=== PATIENT | male | born 1975 | race Caucasian/White ===

== ENCOUNTER 2017-08-18 14:22 | Emergency (ER) | payer OTHER ==
[~2017-08-18] VITALS: Ht 185.4 cm; Wt 95.3 kg
[2017-08-18 14:22] VITALS: BP_SYST 127
[2017-08-18] MEDS ORDERED: IBUPROFEN 800 MG TABLET PO ONE (14:45)
[2017-08-18 16:25] VITALS: BP_SYST 122
== END 2017-08-18 16:25 | disposition home or self-care (01) ==
LOC: SED 14:22
DX: S92.355A Nondisplaced fracture of fifth metatarsal bone, left foot, initial encounter for closed fracture (principal); R03.0 Elevated blood-pressure reading, without diagnosis of hypertension; Z90.89 Acquired absence of other organs; W18.43XA Slipping, tripping and stumbling without falling due to stepping from one level to another, initial encounter; Y93.01 Activity, walking, marching and hiking; Y92.89 Other specified places as the place of occurrence of the external cause; Y99.8 Other external cause status
CPT/HCPCS: 99284

== ENCOUNTER 2022-03-04 17:52 | Emergency (ER) | payer OTHER ==
[~2022-03-04] VITALS: Ht 185.4 cm; Wt 99.8 kg
[2022-03-04 18:00] VITALS: BP_SYST 110
--- NOTE | 2022-03-04 19:57 | NUR ---
[facility] to ER [facility]. Side rails up. Report given to Ivory DAVIS.
--- NOTE | 2022-03-04 20:00 | NUR ---
PATIENT BROUGHT IN COMPLAING OF LACERATION TO HIS LEFT INDEX FINGER AFTER TRYING TO SLICE THE ENDS OF A FLOWER BOUQET WITH LARGE WAREHOUSE FREIGHT HANDLER KNIFE. TETANUS KNOWN.
--- NOTE | 2022-03-04 20:01 | NUR ---
ER at bedside examining patient.
[2022-03-04] MEDS ORDERED: IBUPROFEN 800 MG TABLET PO ONE (20:15)
[2022-03-04] MEDS ORDERED: LIDOCAINE 2%, 20 ML MDV INJ ONE (20:15)
[2022-03-04] MEDS ORDERED: DIPHTH,PERTUSS(ACELL),TET VAC 0.5 ML VIAL (Tdap) I.M. ONE (20:15)
--- NOTE | 2022-03-04 20:24 | NUR ---
DR. CHEEK AT BEDSIDE FOR LACERATION REPAIR
--- NOTE | 2022-03-04 20:55 | NUR ---
Patient has a 2.5 cm laceration to . Dr. CHEEK applied 9 sutures using sterile technique. Edges well approximated. Site cleansed with BETADINE. Dressing of GAUZE applied to site. No bleeding noted. Pt tolerated well.
[2022-03-04] MEDS ORDERED: CEPH250C PO (21:05)
[2022-03-04 21:11] VITALS: BP_SYST 110
--- NOTE | 2022-03-04 21:11 | NUR ---
Patient given written and verbal discharge instructions and verbalizes understanding. ER MD discussed with patient the results and treatment provided. Patient in stable condition. ID arm band removed. Rx of KEFLEX given. Patient educated on pain management and to follow up with PMD. Pain Scale 0/10 Opportunity for questions provided and answered. Medication side effect fact sheet provided.
== END 2022-03-04 21:11 | disposition home or self-care (01) ==
LOC: SED 17:52
DX: S61.412A Laceration without foreign body of left hand, initial encounter (principal); Z79.899 Other long term (current) drug therapy; W26.0XXA Contact with knife, initial encounter; Y93.89 Activity, other specified; Y92.89 Other specified places as the place of occurrence of the external cause; Y99.8 Other external cause status
CPT/HCPCS: 13132; 99284; 73130; 90715; 90471; J2001